=== PATIENT | female | born 1950 | race American Indian/Alaskan Native ===

== ENCOUNTER 2016-11-25 12:00 | Emergency (ER) | payer MEDICARE, OTHER ==
[~2016-11-25] VITALS: Ht 162.6 cm; Wt 78.9 kg
[2016-11-25 12:08] VITALS: Ht 162.6 cm; Wt 78.9 kg
[2016-11-25] MEDS ORDERED: ONDANSETRON (ODT) 4 MG TAB ODT STA (12:31)
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
[2016-11-25] MEDS ORDERED: FAMOTIDINE 20 MG TAB PO ONE (13:00)
[2016-11-25] MEDS ORDERED: HYDROCODONE/APAP (5/325) TAB PO ONE (13:00)
[2016-11-25] MEDS ORDERED: ONDA4TAB8 PO (13:43)
[2016-11-25] MEDS ORDERED: ELEC100080 PO (13:43)
[2016-11-25] MEDS ORDERED: ACET500C5 PO (13:44)
[2016-11-25] MEDS ORDERED: FAMO-18 PO (13:44)
[2016-11-25] MEDS ORDERED: DICY10CA60 PO (13:44)
== END 2016-11-25 13:46 | disposition home or self-care (01) ==
LOC: FTE 12:00
DX: R19.7 Diarrhea, unspecified (principal); R11.10 Vomiting, unspecified; R51 Headache; R10.13 Epigastric pain
CPT/HCPCS: 99284